=== PATIENT | male | born 1965 | race Caucasian/White ===

== ENCOUNTER → 2017-10-28 | Day surgery (SDC) | payer OTHER ==
[~2017-10-28] MED LIST: ACET325 PO; ALPR1 PO; ASPI81CH MT; ATEN25 PO; Azulfidine500 MG; CENTRUM COMPLE1 EACH MT; CYCL10 PO; DULO60; ESCI10; FOLI1 MT; FURO40 PO; GABA300 MT; GABA300 PO; HYDR1TAB94 PO; IBUP800 PO; LORA.5 PO; METTREX2.5 PO; MORP15ER PO; NABU500 PO; NORT10 PO; Norco 5-325 Ta1 EACH PO; OMEP40CA12 PO; OXYC10TA19; OXYC15ER PO; OXYC5; POTCHL20ER PO; PRAM.125 PO; PRED10; PRED10 PO; PRED5 PO; PROM25 PO; Remicade100 MG; Remicade100 MG IV; SULF500A MT; SULF500A PO; TRAZ50; ZOLP10 MT; ZOLP10 PO; Zofran Odt4 MG SL; Zofran Odt8 MG SL; [UNRECOGNIZED DRUG - OTHER]
== END ==
LOC: RAD 10-13 08:00 → CT 10-13 08:00 → RAD 01:07
PROVIDERS: Radiology Diagnostic Radiology
PROC: BR29YZZ Computerized Tomography (CT Scan) of Lumbar Spine using Other Contrast (ICD-10-PCS; principal; 2017-10-28 10:00)
DX: M51.17 Intervertebral disc disorders with radiculopathy, lumbosacral region (principal); M48.061 Spinal stenosis, lumbar region without neurogenic claudication; M43.28 Fusion of spine, sacral and sacrococcygeal region
CPT/HCPCS: 62304; 72132; Q9966

== ENCOUNTER 2018-04-27 18:41 | Emergency (ER) | payer OTHER ==
[~2018-04-27] VITALS: Ht 195.6 cm; Wt 145.2 kg
[2018-04-27 19:09] LABS: BASOPHILS ABSOLUTE AUTO 0.04 K/mm3 (0.00-0.23); BASOPHILS PERCENT AUTO 1 % (0-2); EOSINOPHILS ABSOLUTE AUTO 0.12 K/mm3 (0.00-0.68); EOSINOPHILS PERCENT AUTO 2 % (0-6); Hematocrit 44.8 % (37.0-53.0); Hemoglobin 13.8 g/dL (13.5-17.5); IMMATURE GRAN ABSOLUTE AUTO 0.01 K/mm3 (0.00-0.10); IMMATURE GRAN PERCENT AUTO 0 % (0-1); LYMPHOCYTES ABSOLUTE AUTO 1.92 K/mm3 (0.84-5.20); LYMPHOCYTES PERCENT AUTO 26 % (21-46); MONOCYTES ABSOLUTE AUTO 0.71 K/mm3 (0.16-1.47); MONOCYTES PERCENT AUTO 10 % (4-13); Mean Corpuscular HGB 26.3 pg (26.0-34.0); Mean Corpuscular HGB Conc 30.8 g/dL (31.5-36.5); Mean Corpuscular Volume 85 fL (80-100); Mean Platelet Volume 10.3 fL (9.1-12.4); NEUTROPHILS ABSOLUTE AUTO 4.51 K/mm3 (1.96-9.15); NEUTROPHILS PERCENT AUTO 62 % (41-73); Platelet Count 236 K/mm3 (150-400); RDW Coefficient Variation 14.1 % (11.7-14.2); RDW Standard Deviation 43.6 fL (35.1-46.3); Red Blood Cell Count 5.25 M/mm3 (4.30-5.90); White Blood Cell Count 7.31 K/mm3 (4.00-11.30)
[2018-04-27 19:22] LABS: International Normalized Ratio 0.95; Prothrombin Time Results 9.8 Sec (9.7-11.5)
[2018-04-27 19:27] LABS: Alanine Aminotransfer (ALT/SGP 49 U/L (12-78); Albumin, Blood 3.4 g/dL (3.4-5.0); Albumin/Globulin Ratio 0.8 (0.8-1.8); Alk Phos 168 U/L (50-136); Anion Gap 8 mmol/L (6-16); Aspartate Aminotrans (AST/SGOT 30 U/L (12-37); Bilirubin, Total 0.2 mg/dL (0.1-1.0); Blood Urea Nitrogen 12 mg/dL (8-24); Bun/Creatinine Ratio 12.6 (12.0-20.0); CO2, Blood 25 mmol/L (21-32); Calcium, Blood 8.8 mg/dL (8.5-10.1); Chloride, Blood 104 mmol/L (98-108); Creatinine, Blood 0.95 mg/dL (0.60-1.20); Ethanol (Alcohol), Blood, Med <3 mg/dL; Glomerular Filtration Rate >60 (60-); Glucose, Blood 100 mg/dL (70-99); Potassium, Blood 4.2 mmol/L (3.5-5.5); Sodium, Blood 137 mmol/L (136-145); Total Protein, Blood 7.4 g/dL (6.4-8.2)
== END 2018-04-27 20:35 | disposition home or self-care (01) ==
LOC: ER 18:41
PROVIDERS: Emergency Medicine
DX: S09.90XA Unspecified injury of head, initial encounter (principal); R56.9 Unspecified convulsions; I48.91 Unspecified atrial fibrillation; Z88.8 Allergy status to other drugs, medicaments and biological substances; Z88.0 Allergy status to penicillin; Z79.899 Other long term (current) drug therapy; Z79.82 Long term (current) use of aspirin; Z79.891 Long term (current) use of opiate analgesic; W19.XXXA Unspecified fall, initial encounter
CPT/HCPCS: 70450; 80053; 82550; 85025; 85610; 93005; 93010; 96374; 99285-25; G0480; J1630; J7030

== ENCOUNTER 2018-12-10 02:14 | Day surgery (SDC) | payer OTHER | END 2018-12-10 23:25 | disposition home or self-care (01) | LOC: WOUND 02:14 | DX: L97.812 Non-pressure chronic ulcer of other part of right lower leg with fat layer exposed (principal); E78.5 Hyperlipidemia, unspecified; G47.33 Obstructive sleep apnea (adult) (pediatric); M54.5 Low back pain; G89.29 Other chronic pain; M06.9 Rheumatoid arthritis, unspecified; G47.30 Sleep apnea, unspecified; F41.9 Anxiety disorder, unspecified; F32.9 Major depressive disorder, single episode, unspecified ==

== ENCOUNTER 2018-12-14 00:27 | Day surgery (SDC) | payer OTHER | END 2018-12-14 22:50 | disposition home or self-care (01) | LOC: WOUND 00:27 | DX: L97.812 Non-pressure chronic ulcer of other part of right lower leg with fat layer exposed (principal); M45.9 Ankylosing spondylitis of unspecified sites in spine; E78.5 Hyperlipidemia, unspecified; M06.9 Rheumatoid arthritis, unspecified; G47.33 Obstructive sleep apnea (adult) (pediatric); G62.9 Polyneuropathy, unspecified; G47.30 Sleep apnea, unspecified | CPT/HCPCS: G0463 ==

== ENCOUNTER 2018-12-21 00:22 | Day surgery (SDC) | payer OTHER | END 2018-12-21 23:34 | disposition home or self-care (01) | LOC: WOUND 00:22 | DX: L97.812 Non-pressure chronic ulcer of other part of right lower leg with fat layer exposed (principal); I48.91 Unspecified atrial fibrillation; G47.33 Obstructive sleep apnea (adult) (pediatric) | CPT/HCPCS: G0463 ==

== ENCOUNTER 2018-12-28 11:05 | Day surgery (SDC) | payer OTHER | END 2018-12-28 22:58 | disposition home or self-care (01) | LOC: WOUND 11:05 | DX: T24.001A Burn of unspecified degree of unspecified site of right lower limb, except ankle and foot, initial encounter (principal); L97.812 Non-pressure chronic ulcer of other part of right lower leg with fat layer exposed; I48.91 Unspecified atrial fibrillation; G47.33 Obstructive sleep apnea (adult) (pediatric) | CPT/HCPCS: G0463 ==

== ENCOUNTER 2020-02-25 13:45 | Day surgery (SDC) | payer OTHER | END 2020-02-25 22:36 | disposition home or self-care (01) | LOC: MOI MRI 13:45 | DX: M25.562 Pain in left knee (principal) | CPT/HCPCS: 73721 ==

== ENCOUNTER 2020-04-25 08:16 | Day surgery (SDC) | payer OTHER ==
[~2020-04-25] VITALS: Ht 195.6 cm; Wt 152.5 kg
[~2020-04-25 08:16] MED LIST changes: +Aspir 8181 MG PO; +Ativan1 MG PO; +ESCI10 PO; +FOLI1 PO; +LYRICA75 MG PO
[2020-04-25] MEDS ORDERED: CYCL10 PO (09:00)
[2020-04-25] MEDS ORDERED: BUTALB-ACETAMI1 EAC5 PO (09:01)
[2020-04-25] MEDS ORDERED: HUMIRA PEN40 MG/0.2 SC (09:04)
[2020-04-25] MEDS ORDERED: DESVENLAFAXINE50 M3 PO (09:04)
[2020-04-25] MEDS ORDERED: CLONAZEPAM2 MG PO (09:04)
[2020-04-25] MEDS ORDERED: PRAM.5 PO (09:05)
[2020-04-25] MEDS ORDERED: DICLOFENAC SOD100 G1 TOP (09:05)
[2020-04-25] MEDS ORDERED: HYDROCODONE-AC1 EA10 PO (09:05)
[2020-04-25] MEDS ORDERED: Capzasin-Hp42.5 GM TOP (09:05)
[2020-04-25] MEDS ORDERED: NYSTATIN100000 UN4 MT (09:06)
--- NOTE | 2020-04-25 09:33 | NUR ---
04/25/20 0933 Veronique Pedersen 1 MG EPI ADDED TO THE FIRST BAG OF LR FOR IRRIGATION.
== END 2020-04-25 11:45 | disposition home or self-care (01) ==
LOC: ORSCSDS 08:16
PROVIDERS: Orthopaedic Surgery
PROC: 0SBD4ZZ Excision of Left Knee Joint, Percutaneous Endoscopic Approach (ICD-10-PCS; principal; 2020-04-25 09:15)
DX: S83.282A Other tear of lateral meniscus, current injury, left knee, initial encounter (principal); I10 Essential (primary) hypertension; I48.91 Unspecified atrial fibrillation; F17.210 Nicotine dependence, cigarettes, uncomplicated; G47.33 Obstructive sleep apnea (adult) (pediatric); E66.01 Morbid (severe) obesity due to excess calories; Z68.41 Body mass index [BMI] 40.0-44.9, adult; Z79.899 Other long term (current) drug therapy
CPT/HCPCS: J0171; J0690; J1100; J1885; J2250; J2405; J2704; J3010; J7120

== ENCOUNTER 2020-12-25 09:00 | Emergency (ER) | payer OTHER ==
[~2020-12-25] VITALS: Ht 195.6 cm; Wt 147.4 kg
[~2020-12-25 09:00] MED LIST changes: +BUTALB-ACETAMI1 EAC5 PO; +CLONAZEPAM2 MG PO; +Capzasin-Hp42.5 GM TOP; +DESVENLAFAXINE50 M3 PO; +DICLOFENAC SOD100 G1 TOP; +HUMIRA PEN40 MG/0.2 SC; +HYDROCODONE-AC1 EA10 PO; +NYSTATIN100000 UN4 MT; +PRAM.5 PO
[2020-12-25 09:30] LABS: BASOPHILS ABSOLUTE AUTO 0.02 K/mm3 (0.00-0.23); BASOPHILS PERCENT AUTO 0 % (0-2); EOSINOPHILS ABSOLUTE AUTO 0.07 K/mm3 (0.00-0.68); EOSINOPHILS PERCENT AUTO 1 % (0-6); Hematocrit 45.4 % (37.0-53.0); IMMATURE GRAN ABSOLUTE AUTO 0.02 K/mm3 (0.00-0.10); IMMATURE GRAN PERCENT AUTO 0 % (0-1); LYMPHOCYTES ABSOLUTE AUTO 1.76 K/mm3 (0.84-5.20); LYMPHOCYTES PERCENT AUTO 28 % (21-46); MONOCYTES ABSOLUTE AUTO 0.66 K/mm3 (0.16-1.47); MONOCYTES PERCENT AUTO 11 % (4-13); Mean Corpuscular Volume 88 fL (80-100); Mean Platelet Volume 11.2 fL (9.1-12.4); NEUTROPHILS ABSOLUTE AUTO 3.76 K/mm3 (1.96-9.15); NEUTROPHILS PERCENT AUTO 60 % (41-73); Platelet Count 182 K/mm3 (150-400); RDW Coefficient Variation 12.7 % (11.7-14.2); RDW Standard Deviation 41.3 fL (35.1-46.3); Red Blood Cell Count 5.18 M/mm3 (4.30-5.90); White Blood Cell Count 6.29 K/mm3 (4.00-11.30)
[2020-12-25 09:48] LABS: Alanine Aminotransfer (ALT/SGP 47 U/L (12-78); Albumin, Blood 3.1 g/dL (3.4-5.0); Albumin/Globulin Ratio 0.8 (0.8-1.8); Alk Phos 130 U/L (50-136); Anion Gap 5 mmol/L (6-16); Aspartate Aminotrans (AST/SGOT 48 U/L (12-37); Bilirubin, Total 0.5 mg/dL (0.1-1.0); Blood Urea Nitrogen 8 mg/dL (8-24); Bun/Creatinine Ratio 7.9 (12.0-20.0); CO2, Blood 29 mmol/L (21-32); Calcium, Blood 8.5 mg/dL (8.5-10.1); Chloride, Blood 101 mmol/L (98-108); Creatinine, Blood 1.01 mg/dL (0.60-1.20); Ethanol (Alcohol), Blood, Med <3 mg/dL; Glomerular Filtration Rate >60 (60-); Glucose, Blood 96 mg/dL (70-99); Potassium, Blood 3.7 mmol/L (3.5-5.5); Sodium, Blood 135 mmol/L (136-145); Total Protein, Blood 7.1 g/dL (6.4-8.2)
[2020-12-25 11:21] LABS: International Normalized Ratio 0.99; Prothrombin Time Results 10.7 Sec (9.7-11.5)
[2020-12-25] MEDS ORDERED: IBUP400 PO (11:32)
[2020-12-25] MEDS ORDERED: Robaxin750 MG PO (11:32)
[2020-12-25] MEDS ORDERED: ACET500 PO (11:32)
== END 2020-12-25 11:54 | disposition home or self-care (01) ==
LOC: ER 09:00
PROVIDERS: Student in an Organized Health Care Education/Training Program
DX: S16.1XXA Strain of muscle, fascia and tendon at neck level, initial encounter (principal); S39.012A Strain of muscle, fascia and tendon of lower back, initial encounter; S40.011A Contusion of right shoulder, initial encounter; R91.8 Other nonspecific abnormal finding of lung field; Z88.0 Allergy status to penicillin; Z79.899 Other long term (current) drug therapy; Z88.8 Allergy status to other drugs, medicaments and biological substances; Z93.3 Colostomy status; V57.5XXA Driver of pick-up truck or van injured in collision with fixed or stationary object in traffic accident, initial encounter; Y92.410 Unspecified street and highway as the place of occurrence of the external cause
CPT/HCPCS: 70450; 71045; 72125; 73502; 80053; 85025; 85610; 96374; 96375; 99284-25; A9270; G0480; J1885; J2270

== ENCOUNTER 2022-12-29 10:26 | Emergency (ER) | payer OTHER ==
[~2022-12-29] VITALS: Ht 195.6 cm; Wt 144.7 kg
[~2022-12-29 10:26] MED LIST changes: +ACET500 PO; +IBUP400 PO; +Robaxin750 MG PO
[2022-12-29 11:17] LABS: BASOPHILS ABSOLUTE AUTO 0.03 K/mm3 (0.00-0.23); BASOPHILS PERCENT AUTO 1 % (0-2); EOSINOPHILS ABSOLUTE AUTO 0.08 K/mm3 (0.00-0.68); EOSINOPHILS PERCENT AUTO 2 % (0-6); Hematocrit 48.1 % (37.0-53.0); Hemoglobin 15.8 g/dL (13.5-17.5); IMMATURE GRAN ABSOLUTE AUTO 0.01 K/mm3 (0.00-0.10); IMMATURE GRAN PERCENT AUTO 0 % (0-1); LYMPHOCYTES ABSOLUTE AUTO 1.76 K/mm3 (0.84-5.20); LYMPHOCYTES PERCENT AUTO 34 % (21-46); MONOCYTES ABSOLUTE AUTO 0.48 K/mm3 (0.16-1.47); MONOCYTES PERCENT AUTO 9 % (4-13); Mean Corpuscular HGB 30.1 pg (26.0-34.0); Mean Corpuscular HGB Conc 32.8 g/dL (31.5-36.5); Mean Corpuscular Volume 92 fL (80-100); Mean Platelet Volume 11.2 fL (9.1-12.4); NEUTROPHILS ABSOLUTE AUTO 2.78 K/mm3 (1.96-9.15); NEUTROPHILS PERCENT AUTO 54 % (41-73); Platelet Count 172 K/mm3 (150-400); RDW Coefficient Variation 13.1 % (11.7-14.2); RDW Standard Deviation 43.8 fL (35.1-46.3); Red Blood Cell Count 5.25 M/mm3 (4.30-5.90); White Blood Cell Count 5.14 K/mm3 (4.00-11.30)
[2022-12-29 11:58] LABS: Albumin, Blood 3.4 g/dL (3.4-5.0); Albumin/Globulin Ratio 0.9 (0.8-1.8); Bilirubin, Total 0.2 mg/dL (0.1-1.0); Bun/Creatinine Ratio 8.9 (12.0-20.0); Calcium, Blood 8.9 mg/dL (8.5-10.1); Creatinine, Blood 1.01 mg/dL (0.60-1.20); Globulin, Blood 3.7 g/dL (2.2-4.0); Potassium, Blood 4.4 mmol/L (3.5-5.5); Total Protein, Blood 7.1 g/dL (6.4-8.2)
[2022-12-29 13:06] LABS: Influenza A, PCR NEGATIVE (NEGATIVE); Influenza B, PCR NEGATIVE (NEGATIVE); Resp Syncytial Virus, PCR NEGATIVE (NEGATIVE); SARS-Cov-2 (COVID-19) PCR, MMC NEGATIVE (NEGATIVE)
[2022-12-29] MEDS ORDERED: Ativan1 MG PO ×2 (13:53→13:55)
[2022-12-29 14:12] VITALS: BP 124/73
== END 2022-12-29 14:15 | disposition home or self-care (01) ==
LOC: ER 10:26
PROVIDERS: Emergency Medicine; Physician Assistant
DX: F41.9 Anxiety disorder, unspecified (principal); Z88.8 Allergy status to other drugs, medicaments and biological substances; Z88.0 Allergy status to penicillin; Z79.899 Other long term (current) drug therapy; I48.91 Unspecified atrial fibrillation; G47.30 Sleep apnea, unspecified
CPT/HCPCS: 0241U; 71046; 80053; 83880; 85025; 93005; 93010; 99283-25

== ENCOUNTER 2025-01-06 16:25 | Inpatient (IN) | payer OTHER ==
[~2025-01-06] VITALS: Ht 195.6 cm; Wt 133.9 kg
[2025-01-06 17:20] VITALS: BP 143/76
[2025-01-06] MEDS ORDERED: Magnesium Hydroxide Conc 10 ML UDC PO PRN (18:35)
[2025-01-06] MEDS ORDERED: CefTRIAXone Sodium 2,000 MG in NS 100 ML IV SCH (19:00)
--- NOTE | 2025-01-06 19:53 | NUR ---
PT DIRECT ADMIT. DR. BUTLER AT BEDSIDE. ALERT AND ORIENTED X4. MED REC TO BE COMPETED BY THIS RN. IMPLANTED MORPHINE PORT. AWARE
[2025-01-06] MEDS ORDERED: AIMOVIG AU70 MG/1 ML SC (20:12)
[2025-01-06] MEDS ORDERED: SILD50TA PO (20:15)
[2025-01-06] MEDS ORDERED: Metrogel 1% 6060 GM TOP (20:17)
[2025-01-06] MEDS ORDERED: ATEN25 PO (20:18)
[2025-01-06] MEDS ORDERED: PREG200 PO (20:18)
[2025-01-06] MEDS ORDERED: PRAMIPEXOLE DIHY1 M1 PO (20:19)
[2025-01-06] MEDS ORDERED: UBRELVY50 MG PO (20:22)
[2025-01-06] MEDS ORDERED: TORSE20 PO (20:22)
[2025-01-06] MEDS ORDERED: TAMS.4ER PO (20:22)
[2025-01-06 20:24] VITALS: BP 131/78
[2025-01-06] MEDS ORDERED: Lactobacil 2-S.Thermo-Bifido 1 1 Cap PO SCH (21:00)
[2025-01-06 21:35] LABS: BASOPHILS ABSOLUTE AUTO 0.05 K/mm3 (0.00-0.23); BASOPHILS PERCENT AUTO 1 % (0-2); EOSINOPHILS ABSOLUTE AUTO 0.07 K/mm3 (0.00-0.68); EOSINOPHILS PERCENT AUTO 1 % (0-6); Hematocrit 44.7 % (37.0-53.0); Hemoglobin 14.8 g/dL (13.5-17.5); IMMATURE GRAN ABSOLUTE AUTO 0.02 K/mm3 (0.00-0.10); IMMATURE GRAN PERCENT AUTO 0 % (0-1); LYMPHOCYTES ABSOLUTE AUTO 1.81 K/mm3 (0.84-5.20); LYMPHOCYTES PERCENT AUTO 28 % (21-46); MONOCYTES ABSOLUTE AUTO 0.45 K/mm3 (0.16-1.47); MONOCYTES PERCENT AUTO 7 % (4-13); Mean Corpuscular HGB Conc 33.1 g/dL (31.5-36.5); Mean Corpuscular Volume 91 fL (80-100); NEUTROPHILS ABSOLUTE AUTO 4.02 K/mm3 (1.96-9.15); NEUTROPHILS PERCENT AUTO 63 % (41-73); NRBC ABSOLUTE 0.00 K/mm3 (0.00-0.02); NRBC Auto 0.0 /100 WBC (0.0-0.2); Platelet Count 211 K/mm3 (150-400); RDW Coefficient Variation 12.9 % (11.7-14.2); RDW Standard Deviation 42.5 fL (35.1-46.3)
[2025-01-06] MEDS ORDERED: Misc. Injectable SC SCH (21:40)
[2025-01-06 21:56] LABS: Alanine Aminotransfer (ALT/SGP 20.0 U/L (12-78); Albumin, Blood 3.4 g/dL (3.4-5.0); Albumin/Globulin Ratio 0.9 (0.8-1.8); Anion Gap 8.0 mmol/L (3-11); Aspartate Aminotrans (AST/SGOT 21.0 U/L (12-37); Bilirubin, Total 0.2 mg/dL (0.1-1.0); Blood Urea Nitrogen 11.0 mg/dL (8-24); CO2, Blood 27.0 mmol/L (21-32); Calcium, Blood 8.6 mg/dL (8.5-10.1); Chloride, Blood 104.0 mmol/L (98-108); Creatinine, Blood 1.2 mg/dL (0.60-1.20); Globulin, Blood 3.9 g/dL (2.2-4.0); Glucose, Blood 85.0 mg/dL (70-99); Magnesium, Blood 2.0 mg/dL (1.6-2.4); Potassium, Blood 3.7 mmol/L (3.5-5.5); Sodium, Blood 135.0 mmol/L (136-145); Total Protein, Blood 7.3 g/dL (6.4-8.2)
[2025-01-06 23:58] VITALS: BP 135/73
[2025-01-07 04:32] VITALS: BP 119/65
[2025-01-07 04:53] LABS: BASOPHILS ABSOLUTE AUTO 0.03 K/mm3 (0.00-0.23); BASOPHILS PERCENT AUTO 1 % (0-2); EOSINOPHILS ABSOLUTE AUTO 0.08 K/mm3 (0.00-0.68); EOSINOPHILS PERCENT AUTO 2 % (0-6); Hematocrit 41.8 % (37.0-53.0); Hemoglobin 13.8 g/dL (13.5-17.5); IMMATURE GRAN ABSOLUTE AUTO 0.02 K/mm3 (0.00-0.10); IMMATURE GRAN PERCENT AUTO 0 % (0-1); LYMPHOCYTES ABSOLUTE AUTO 2.00 K/mm3 (0.84-5.20); LYMPHOCYTES PERCENT AUTO 38 % (21-46); MONOCYTES ABSOLUTE AUTO 0.47 K/mm3 (0.16-1.47); MONOCYTES PERCENT AUTO 9 % (4-13); Mean Corpuscular HGB Conc 33.0 g/dL (31.5-36.5); Mean Corpuscular Volume 89 fL (80-100); NEUTROPHILS ABSOLUTE AUTO 2.69 K/mm3 (1.96-9.15); NEUTROPHILS PERCENT AUTO 51 % (41-73); NRBC ABSOLUTE 0.00 K/mm3 (0.00-0.02); NRBC Auto 0.0 /100 WBC (0.0-0.2); Platelet Count 207 K/mm3 (150-400); RDW Coefficient Variation 13.1 % (11.7-14.2); RDW Standard Deviation 42.9 fL (35.1-46.3)
--- NOTE | 2025-01-07 05:01 | NUR ---
SHIFT SUMMARY PATIENT A/OX4- IND IN THE ROOM WITH CANE. WOUND DRESSING TO R SECOND TOE CHANGED WITH PROVIDER AT BEDSIDE, PHOTOS OBTAINED. PAIN MANAGED BY MORPHINE PUMP, CURRENTLY AWAITING DOSEAGE INFORMATION FROM SPOUSE. NPO SINCE MIDNIGHT. TELE REPORT OF SINUS NEYDA IN THE MID 50'S. COLOSTOMY TO RLQ, PATIENT MANAGES IT HIMSELF. NO ACUTE CHANGES THROUGHOUT SHIFT. WILL CONTINUE TO MONITOR AND REPORT TO ONCOMING RN.
[2025-01-07 05:27] LABS: Alanine Aminotransfer (ALT/SGP 20.0 U/L (12-78); Albumin, Blood 3.1 g/dL (3.4-5.0); Albumin/Globulin Ratio 0.9 (0.8-1.8); Anion Gap 8.0 mmol/L (3-11); Aspartate Aminotrans (AST/SGOT 20.0 U/L (12-37); Bilirubin, Total 0.3 mg/dL (0.1-1.0); Blood Urea Nitrogen 12.0 mg/dL (8-24); CO2, Blood 25.0 mmol/L (21-32); Calcium, Blood 8.3 mg/dL (8.5-10.1); Chloride, Blood 105.0 mmol/L (98-108); Creatinine, Blood 1.11 mg/dL (0.60-1.20); Globulin, Blood 3.6 g/dL (2.2-4.0); Glucose, Blood 91.0 mg/dL (70-99); Magnesium, Blood 2.0 mg/dL (1.6-2.4); Potassium, Blood 4.1 mmol/L (3.5-5.5); Sodium, Blood 134.0 mmol/L (136-145); Total Protein, Blood 6.7 g/dL (6.4-8.2)
[2025-01-07 07:21] VITALS: BP 119/69
[2025-01-07] MEDS ORDERED: Misc. Topical TOP SCH (09:00)
[2025-01-07] MEDS ORDERED: Enoxaparin 40 MG/0.4 ML SYR SC SCH (09:00)
[2025-01-07 15:51] VITALS: BP 136/69
--- NOTE | 2025-01-07 17:55 | NUR ---
PATIENT NPO FOR MOST OF DAY, WAITING FOR CONSULT FROM SURGEON ABOUT AMPUTATING 2ND TOE ON RIGHT FOOT. PATIENT ABLE TO EAT LATE LUNCH AND SET OF XRAYS TAKEN FOR [employer] EXECUTIVE PRODUCER TO REVIEW. STATED HE WOULD COME SEE PATIENT TODAY. WAITING FOR EVALUATION.
[2025-01-07 19:16] VITALS: BP 132/73
[2025-01-08] VITALS (14 sets, daily range): BP systolic 103–168; BP diastolic 51–82
--- NOTE | 2025-01-08 05:02 | NUR ---
SHIFT SUMMARY A/O X4- PLEASANT AND COOPERATIVE WITH CARE. SBA/IND IN THE ROOM. PAIN MANAGED BY MORPHINE PAIN PUMP. VITAL SIGNS STABLE. NO TELE EVENTS REPORTED. NPO SINCE MIDNIGHT FOR SURGERY TO AMPUTATE R SECOND TOE. NO ACUTE CHANGES THROUGHOUT THE SHIFT. WILL CONTINUE TO MONITOR AND REPORT TO ONCOMING RN.
[2025-01-08 05:06] LABS: BASOPHILS ABSOLUTE AUTO 0.04 K/mm3 (0.00-0.23); BASOPHILS PERCENT AUTO 1 % (0-2); EOSINOPHILS ABSOLUTE AUTO 0.07 K/mm3 (0.00-0.68); EOSINOPHILS PERCENT AUTO 2 % (0-6); Hematocrit 45.8 % (37.0-53.0); Hemoglobin 14.7 g/dL (13.5-17.5); IMMATURE GRAN ABSOLUTE AUTO 0.01 K/mm3 (0.00-0.10); IMMATURE GRAN PERCENT AUTO 0 % (0-1); LYMPHOCYTES ABSOLUTE AUTO 1.83 K/mm3 (0.84-5.20); LYMPHOCYTES PERCENT AUTO 43 % (21-46); MONOCYTES ABSOLUTE AUTO 0.39 K/mm3 (0.16-1.47); MONOCYTES PERCENT AUTO 9 % (4-13); Mean Corpuscular HGB Conc 32.1 g/dL (31.5-36.5); Mean Corpuscular Volume 91 fL (80-100); NEUTROPHILS ABSOLUTE AUTO 1.95 K/mm3 (1.96-9.15); NEUTROPHILS PERCENT AUTO 46 % (41-73); NRBC ABSOLUTE 0.00 K/mm3 (0.00-0.02); NRBC Auto 0.0 /100 WBC (0.0-0.2); Platelet Count 198 K/mm3 (150-400); RDW Coefficient Variation 12.9 % (11.7-14.2); RDW Standard Deviation 43.1 fL (35.1-46.3)
[2025-01-08 05:30] LABS: Alanine Aminotransfer (ALT/SGP 21.0 U/L (12-78); Albumin, Blood 3.2 g/dL (3.4-5.0); Albumin/Globulin Ratio 0.8 (0.8-1.8); Anion Gap 6.0 mmol/L (3-11); Aspartate Aminotrans (AST/SGOT 20.0 U/L (12-37); Bilirubin, Total 0.4 mg/dL (0.1-1.0); Blood Urea Nitrogen 12.0 mg/dL (8-24); CO2, Blood 29.0 mmol/L (21-32); Calcium, Blood 8.4 mg/dL (8.5-10.1); Chloride, Blood 102.0 mmol/L (98-108); Creatinine, Blood 1.19 mg/dL (0.60-1.20); Globulin, Blood 3.9 g/dL (2.2-4.0); Glucose, Blood 87.0 mg/dL (70-99); Magnesium, Blood 2.1 mg/dL (1.6-2.4); Potassium, Blood 4.4 mmol/L (3.5-5.5); Sodium, Blood 133.0 mmol/L (136-145); Total Protein, Blood 7.1 g/dL (6.4-8.2)
[2025-01-08 05:33] LABS: Prothrombin Time Results 10.9 Sec (9.7-11.5)
[2025-01-08] MEDS ORDERED: Bupivacaine 0.5% Inj 10 ML Vial ONE (10:24)
[2025-01-08] MEDS ORDERED: Lidocaine HCl 2% 10 ML SDA ONE (10:24)
[2025-01-08] MEDS ORDERED: Midazolam HCl 1MG / ML 2ML Vial ONE (11:28)
--- NOTE | 2025-01-08 13:18 | NUR ---
PACU TO 303 PT BROUGHT BACK TO HIS ROOM FROM PACU, AWAKE AND ALERT, ANSWERING QUESTIONS FROM NURSING STAFF. EXUDRY/KERLEX/ROBERT TO R FOOT, S/P R 2ND TOE AMPUTATION, CAP REFIL < 3 SECONDS RLE, POSTERIOR TIBIAL PULSE PRESENT (UNABLE TO ACCESS DORSALIS PEDIS R/T DRESSING). PT REPORTS NEUROPATHY AT BASELINE, DENEIES PAIN. DISCUSSED PLAN OF CARE, FOOD AND DRINK PROVIDED TO HIM.
--- NOTE | 2025-01-08 19:35 | NUR ---
SHIFT SUMMARY POD0 RLE 2ND DIGIT AMPUTATION, A/OX4, VSS, TOLERATING PO POST OP, ABLE TO AMBULATE POST OP, NO PAIN UNTIL NEAR END OF SHIFT WHEN HE STATES IT WAS STARTING TO ACHE DURING SHIFT REPORT THIS EVENING. DRESSING C/D/I. NO ACUT EVENTS THIS SHIFT, CALL LIGHT IN REACH.
[2025-01-08] MEDS ORDERED: Vancomycin (Pharmacy Consult) IV SCH (20:00)
[2025-01-08] MEDS ORDERED: NS 250 ML IV PRN (20:05)
[2025-01-08] MEDS ORDERED: Vancomycin HCL 2,500 MG in NS 500 ML IV ONE (20:20)
[2025-01-09 03:59] VITALS: BP 109/56
[2025-01-09 05:52] LABS: BASOPHILS ABSOLUTE AUTO 0.03 K/mm3 (0.00-0.23); BASOPHILS PERCENT AUTO 0 % (0-2); EOSINOPHILS ABSOLUTE AUTO 0.05 K/mm3 (0.00-0.68); EOSINOPHILS PERCENT AUTO 1 % (0-6); Hematocrit 42.2 % (37.0-53.0); Hemoglobin 13.6 g/dL (13.5-17.5); IMMATURE GRAN ABSOLUTE AUTO 0.02 K/mm3 (0.00-0.10); IMMATURE GRAN PERCENT AUTO 0 % (0-1); LYMPHOCYTES ABSOLUTE AUTO 2.12 K/mm3 (0.84-5.20); LYMPHOCYTES PERCENT AUTO 31 % (21-46); MONOCYTES ABSOLUTE AUTO 0.69 K/mm3 (0.16-1.47); MONOCYTES PERCENT AUTO 10 % (4-13); Mean Corpuscular HGB Conc 32.2 g/dL (31.5-36.5); Mean Corpuscular Volume 92 fL (80-100); NEUTROPHILS ABSOLUTE AUTO 3.87 K/mm3 (1.96-9.15); NEUTROPHILS PERCENT AUTO 57 % (41-73); NRBC ABSOLUTE 0.00 K/mm3 (0.00-0.02); NRBC Auto 0.0 /100 WBC (0.0-0.2); Platelet Count 185 K/mm3 (150-400); RDW Coefficient Variation 12.8 % (11.7-14.2); RDW Standard Deviation 43.4 fL (35.1-46.3)
[2025-01-09 06:15] LABS: Alanine Aminotransfer (ALT/SGP 23.0 U/L (12-78); Albumin, Blood 2.8 g/dL (3.4-5.0); Albumin/Globulin Ratio 0.8 (0.8-1.8); Anion Gap 5.0 mmol/L (3-11); Aspartate Aminotrans (AST/SGOT 22.0 U/L (12-37); Bilirubin, Total 0.2 mg/dL (0.1-1.0); Blood Urea Nitrogen 13.0 mg/dL (8-24); CO2, Blood 28.0 mmol/L (21-32); Calcium, Blood 8.5 mg/dL (8.5-10.1); Chloride, Blood 105.0 mmol/L (98-108); Creatinine, Blood 1.08 mg/dL (0.60-1.20); Globulin, Blood 3.7 g/dL (2.2-4.0); Glucose, Blood 92.0 mg/dL (70-99); Magnesium, Blood 2.2 mg/dL (1.6-2.4); Potassium, Blood 4.2 mmol/L (3.5-5.5); Sodium, Blood 134.0 mmol/L (136-145); Total Protein, Blood 6.5 g/dL (6.4-8.2)
[2025-01-09 07:13] VITALS: BP 108/54
--- NOTE | 2025-01-09 11:15 | NUR ---
THIS RN NOTIFIED OF PT'S LOW HR DURING AM ROUND. PT ASYMPTOMATIC, ATENOLOL HELD.
[2025-01-09 11:29] VITALS: BP 114/59
[2025-01-09 15:45] VITALS: BP 120/56
[2025-01-09] MEDS ORDERED: VISBIOME 112.51 EACH PO (17:11)
[2025-01-09] MEDS ORDERED: SULFAMETHOXAZO1 EAC1 PO (17:12)
[2025-01-09] MEDS ORDERED: Percocet 5-3251 EACH PO (17:12)
--- NOTE | 2025-01-09 17:58 | NUR ---
DISCHARGE NOTE PT D/C HOME AT 1740. PT PROVIDED W/ VERBAL AND WRITTEN INSTRUCTIONS AND REPORTED UNDERSTANDING. THIS RN CHANGED DRESSING AND DEMONSTRATED WOUND CARE/DRESSING CHANGE FOR PT TO TAKE CARE OF AT HOME. PT A&OX4, VSS, AMB IND, TOLERATING PO, VOIDING, AND PAIN MANAGED. HARD SCRIPT GIVEN AND SUPPLIES FOR WOUND CARE/DRESSING CHANGES PROVIDED. BELONGINGS WERE RETURNED.
== END 2025-01-09 18:22 | disposition home or self-care (01) | DRG 504 ==
LOC: MEDS 16:25
PROVIDERS: Podiatrist Foot & Ankle Surgery; ADMIT Family Medicine
PROC: 3E03329 Introduction of Other Anti-infective into Peripheral Vein, Percutaneous Approach (ICD-10-PCS; 2025-01-06)
PROC: 0Y6R0Z1 Detachment at Right 2nd Toe, High, Open Approach (ICD-10-PCS; principal; 2025-01-08 11:30)
DX: M86.171 Other acute osteomyelitis, right ankle and foot (principal); D84.9 Immunodeficiency, unspecified; Z88.0 Allergy status to penicillin; Z88.8 Allergy status to other drugs, medicaments and biological substances; Z79.899 Other long term (current) drug therapy; G89.29 Other chronic pain; M54.9 Dorsalgia, unspecified; M45.9 Ankylosing spondylitis of unspecified sites in spine; G43.909 Migraine, unspecified, not intractable, without status migrainosus; N40.0 Benign prostatic hyperplasia without lower urinary tract symptoms
CPT/HCPCS: 36415; 73630; 80053; 83735; 85025; 85610; 85730; 87040; 87071; 87075; 87077; 87147; 87185; 87186; 87205; 88305; 88311; A9270; J0696; J2003; J2250; J2704; J3373; J7040

== ENCOUNTER → 2025-04-17 | Outpatient (CLI) | payer OTHER ==
[~2025-04-17] MED LIST changes: +AIMOVIG AU70 MG/1 ML SC; +Metrogel 1% 6060 GM TOP; +PRAMIPEXOLE DIHY1 M1 PO; +PREG200 PO; +Percocet 5-3251 EACH PO; +SILD50TA PO; +SULFAMETHOXAZO1 EAC1 PO; +TAMS.4ER PO; +TORSE20 PO; +UBRELVY50 MG PO; +VISBIOME 112.51 EACH PO
== END | disposition home or self-care (01) ==
LOC: LAB SHORT 15:20 → LAB 15:20
DX: M86.171 Other acute osteomyelitis, right ankle and foot (principal); L97.519 Non-pressure chronic ulcer of other part of right foot with unspecified severity
CPT/HCPCS: 87071; 87075; 87077; 87186; 87205